=== PATIENT | female | born 1990 | race Two or more races ===

== ENCOUNTER → 2016-11-26 | Day surgery (SDC) | payer OTHER ==
--- NOTE | ~2016-11-26 | OR ---
Unit #: [id number] #: [id number] Patient: LALO ALEXANDRA [id number] [address] [address] [id number] O MR#: [id number] NAME: LALO ALEXANDRA ROOM: Date of Procedure: 11/26/2016 Admission Date: 11/26/2016 Surgeon: Jeffrey Drew M.D. : 1990 Attending Physician: Jeffrey Drew M.D. OPERATIVE REPORT PREOPERATIVE DIAGNOSIS Appendicitis. POSTOPERATIVE DIAGNOSIS Appendicitis. PROCEDURE PERFORMED Laparoscopic appendectomy. DIRECTOR GIFT None. ANESTHESIA General anesthesia. ESTIMATED BLOOD LOSS Minimal. IV FLUIDS 500 crystalloid. COMPLICATIONS None. INDICATIONS FOR PROCEDURE The patient is a 26-year-old lady with appendicitis. DESCRIPTION OF PROCEDURE The patient was taken to the operative theater and placed in supine position. General anesthesia was induced. Her abdomen was prepped and draped. Infraumbilical incision was then made. A Veress needle was placed intraabdominally. The abdomen was insufflated to 15 mmHg with CO2. I placed a 5-mm port in the umbilicus, right lower quadrant 10 mm, and left lower quadrant 5 mm. The patient was found to have early appendicitis, which is nonperforated. I mobilized the right colon and the appendix from its retroperitoneal attachments using Bovie electrocautery. I then fired a JOSE stapler across the mesoappendix as well as the base of the appendix. This was then placed in an Endobag and removed. Hemostasis was adequate. I removed the ports and closed the fascia with 0 Vicryl and skin with 4-0 Vicryl. The patient tolerated the procedure well and sent to the recovery room in good condition. Unit #: [id number] #: [id number] Patient: LALO ALEXANDRA Dictated by... Aubrey RamirezO/nil TD: 11/27/2016 02:51 JOB #: [id number] OPERATIVE REPORT X Jeffrey Drew MD X PROCEDURE OPERATIVE NOTE
--- NOTE | ~2016-11-26 | CT2 ---
[facility] RADIOLOGY TEXT RESULTS PATIENT: LALO ALEXANDRA LOCATION: [facility] : [birth year] UNIT #: [id number] AGE: [address]: Jeffrey Drew MD SEX: F ORDER DR: [id number] [facility] [address] [facility]. [place], [place] [address] [id number] O MR#: [id number] Acc #: [id number] NAME: LALO ALEXANDRA : 1990 SEX: F STUDY DATE/TIME: 11/26/2016 13:45 UNIT: [facility] ROOM: STUDY DESCRIPTION: CT Abd and Pelv W Cont Attending Physician: Jeffrey Drew M.D. Ordering Physician: Marlin Moran P.A.-C. Primary Care Physician: Primary Care Physician No MEDICAL IMAGING REPORT This report is preliminary unless electronic signature is present EXAM CT abdomen and pelvis with contrast 11/26/2016 HISTORY 26-year-old female with abdominal pain for 3 days. Nausea and vomiting. COMPARISON None TECHNIQUE Helical scan performed through the abdomen and pelvis following administration of IV contrast. Coronal and sagittal reformatted images. This CT exam was performed with one or more of the following radiation dose reduction techniques: automatic exposure control, adjustment of mA and/or kV according to patient size, and iterative reconstruction. FINDINGS Visualized lung bases are unremarkable. Diffuse fatty infiltration of the liver with some fatty sparing in the inferior right hepatic lobe. The spleen, pancreas, gallbladder, both adrenal glands, and both kidneys are within normal limits. Abdominal aorta normal in course and caliber without dissection. Small bowel is unremarkable without obstruction. The appendix appears mildly dilated and there is mild periappendiceal inflammatory stranding. Findings are concerning for early acute appendicitis. No evidence of perforation or abscess. The colon is unremarkable. No free fluid or free air. The urinary bladder, uterus, both adnexa are unremarkable. No significant free pelvic fluid. No acute bony abnormality. [facility] RADIOLOGY TEXT RESULTS PATIENT: LALO ALEXANDRA LOCATION: [facility] : 91 UNIT #: [id number] AGE: [address]: Jeffrey Drew MD SEX: F ORDER DR: IMPRESSION 1. Mildly dilated appendix with mild periappendiceal inflammatory stranding. This is most concerning for early acute appendicitis. No evidence of perforation or abscess. 2. Hepatic steatosis. Dictated by... Renaldo Gray M.D. THIS IS AN ELECTRONICALLY VERIFIED REPORT Renaldo Gray M.D. at 11/28/2016 7:47 AM ANGELA/phil TD: 11/27/2016 12:38 JOB #: [id number] MEDICAL IMAGING REPORT COPY
--- NOTE | ~2016-11-26 | CO ---
Unit #: [id number] #: [id number] Patient: LALO ALEXANDRA [id number] [address] [address] [id number] O MR#: [id number] NAME: LALO ALEXANDRA ROOM: Age: 26 Sex: F Admission Date: 11/26/2016 : 1990 Attending Physician: Jeffrey Drew M.D. Consultation Date: 11/26/2016 CONSULTATION REPORT BRIEF HISTORY The patient is a 26-year-old lady with a 3-day history of periumbilical and right lower quadrant abdominal pain. Some nausea and vomiting. No diarrhea. No fevers or chills. No history of similar type pain. PAST MEDICAL HISTORY None. MEDICATIONS She is on no medications. PAST SURGICAL HISTORY She has had no previous surgeries. SOCIAL HISTORY No smoking. No alcohol. FAMILY HISTORY Negative for GI malignancy. REVIEW OF SYSTEMS No cardiopulmonary complaints at this time. Else, 10 systems reviewed and negative. PHYSICAL EXAMINATION GENERAL: She is awake, alert, appropriate. VITAL SIGNS: Currently, afebrile. HEENT: Unremarkable. NECK: Supple. No JVD. Trachea midline. LUNGS: Clear to auscultation bilaterally. Breath sounds symmetric. CARDIOVASCULAR: Regular rate and rhythm. ABDOMEN: Soft. It is tender in the right lower quadrant. There is point tenderness at McBurney point. There is no rebound. No masses palpable. EXTREMITIES: No clubbing, cyanosis, or edema. DIAGNOSTIC STUDIES LABORATORY RESULTS: CT scan shows inflammation of the appendix. ASSESSMENT Appendicitis. PLAN Recommend laparoscopic appendectomy, discussed in detail. Answered all questions. We will proceed as indicated. Unit #: [id number] #: [id number] Patient: LALO ALEXANDRA Dictated by... Aubrey Ramirez/cristino TD: 11/27/2016 02:12 JOB #: [id number] CONSULTATION REPORT X Jeffrey Drew MD X CONSULTATION REPORT
[2016-11-26 12:41] LABS: URINE SOURCE CLEAN CATCH
[2016-11-26 12:43] LABS: BASOPHIL# 0.1 X10e3 (0-0.3); BASOPHIL% 0.8 % (0-2.5); EOSINOPHIL# 0.1 X10e3 (0-0.7); EOSINOPHIL% 1.2 % (0.0-7.0); HEMATOCRIT 40.1 % (35.0-45.0); HEMOGLOBIN 12.9 gm/dL (12.0-16.0); LYMPHOCYTE# 3.9 X10e3 (1.0-3.5); LYMPHOCYTE% 37.5 % (17.0-45.0); MEAN CELL VOLUME 92.3 FL (83-96); MEAN CORPUSCULAR HEMOGLOBIN 29.8 PG (28-34); MEAN CORPUSCULAR HGB CONC 32.3 g/dL (30-36); MEAN PLATELET VOLUME 8.8 FL (6.5-11.5); MONOCYTE# 0.6 X10e3 (0-1.0); MONOCYTE% 5.8 % (3.0-12.0); NEUTROPHIL# 5.7 X10e3 (1.5-7.1); NEUTROPHIL% 54.7 % (40-75); PLATELET COUNT 324 X10e3 (140-420); RED BLOOD COUNT 4.34 X10e (3.90-5.30); RED CELL DISTRIBUTION WIDTH 12.5 % (11.0-15.5); WHITE BLOOD COUNT 10.4 X10e3 (4.0-10.5)
[2016-11-26 12:45] LABS: DIFF IND NO
[2016-11-26 12:45] LABS: URINE APPEARANCE CLEAR; URINE BILIRUBIN NEG (NEG); URINE BLOOD 1+ (NEG); URINE COLOR YELLOW; URINE GLUCOSE NEG (NEG); URINE KETONE NEG (NEG); URINE LEUKOCYTE ESTERASE NEG (NEG); URINE NITRATE NEG (NEG); URINE PH 5.5 (5-8); URINE PROTEIN NEG (NEG); URINE SPECIFIC GRAVITY 1.012 (1.003-1.035); URINE UROBILINOGEN 0.2 MG/DL (NEG)
[2016-11-26 12:48] LABS: U HYALINE CASTS AUWI 0-2 /[LPF]; URINE BACTERIA AUWI NEG (NEGATIVE); URINE SQUAMOUS EPITHELIAL CELL OCC /[HPF]
[2016-11-26 12:49] LABS: CULTURE INDICATED? NO
[2016-11-26 13:13] LABS: ALBUMIN SERUM 3.9 g/dL (3.5-5.0); ALKALINE PHOSPHATASE 97 U/L (32-92); ALT (SGPT) 43 U/L (10-40); AMYLASE 19 U/L (0-46); AST (SGOT) 30 U/L (10-42); BILIRUBIN, DIRECT 0.1 mg/dL (0.0-0.2); BILIRUBIN,INDIRECT 0.3 mg/dL (0.0-0.9); BILIRUBIN,TOTAL 0.4 mg/dL (0.2-2.0); BLOOD UREA NITROGEN 10 mg/dL (9-23); BUN/CREATININE RATIO 16.66; CALCIUM SERUM 9.2 mg/dL (8.4-10.2); CARBON DIOXIDE 26 mmol/L (22-31); CHLORIDE 106 mmol/L (100-111); CREATININE SERUM 0.6 mg/dL (0.6-1.4); GLOM FILT RATE Estimated ABOVE60 mL/min (>60); GLUCOSE FASTING 87 mg/dL (70-110); LIPASE 24 U/L (22-51); POTASSIUM 4.2 mmol/L (3.5-5.1); PROTEIN TOTAL SERUM 7.8 g/dL (6.0-8.3); SODIUM 140 mmol/L (135-145)
== END | disposition home or self-care (01) ==
LOC: CFTX 12:06 → CSUR 22:29
PROVIDERS: Physician Assistant; Surgery
PROC: 0DTJ4ZZ Resection of Appendix, Percutaneous Endoscopic Approach (ICD-10-PCS; principal; 2016-11-26 16:00)
DX: K35.80 Unspecified acute appendicitis (principal); K76.0 Fatty (change of) liver, not elsewhere classified
CPT/HCPCS: 36415; 74177; 80048; 80076; 81003; 82150; 83690; 84703; 85025; 88304; 96374; 96375; 99285; J0330; J1100; J1885; J2250; J2405; J2543; J2710; J3010; Q9967